=== PATIENT | female | born 1995 ===

== ENCOUNTER 2018-05-01 15:52 | Outpatient (CLI) | payer OTHER | END 2018-05-01 16:10 | disposition home or self-care (01) | LOC: RAD 15:52 | DX: R07.89 Other chest pain (principal); R00.2 Palpitations ==

== ENCOUNTER 2018-05-04 11:58 | Emergency (ER) | payer OTHER ==
[~2018-05-04] VITALS: Ht 162.6 cm; Wt 56.7 kg
== END 2018-05-04 19:09 | disposition home or self-care (01) ==
LOC: ER 11:58
DX: S05.02XA Injury of conjunctiva and corneal abrasion without foreign body, left eye, initial encounter (principal); W55.03XA Scratched by cat, initial encounter; Y93.89 Activity, other specified; Y92.89 Other specified places as the place of occurrence of the external cause; Y99.8 Other external cause status; H10.12 Acute atopic conjunctivitis, left eye

== ENCOUNTER 2018-05-12 13:27 | Outpatient (CLI) | payer OTHER | END 2018-05-12 13:43 | disposition home or self-care (01) | LOC: LAB 13:27 | DX: D64.89 Other specified anemias (principal); Z11.3 Encounter for screening for infections with a predominantly sexual mode of transmission ==